=== PATIENT | female | born 1975 | race Caucasian/White ===

== ENCOUNTER → 2017-05-12 | Outpatient (CLI) | payer BC ==
[~2017-05-12] MED LIST: MULT-506 PO
[2017-05-12 11:19] LABS: BASO % 0.3 %; BASO ABS # 0.02 K/uL (0-0.2); COMPLETE YES; EOS % 2.4 %; HEMATOCRIT 38.5 % (37-47); IG% 0.1 %; LYMPH ABS # 2.17 K/uL (1.2-3.4); MEAN CELL VOLUME 89.7 fL (80-100); MEAN CORPUSCULAR HEMOGLOBIN 30.1 pg (25-34); MEAN CORPUSCULAR HGB CONC 33.5 g/dl (32-36); MEAN PLATELET VOLUME 9.5 fL (7.4-10.4); MONO % 6.4 %; NEUT % 59.8 %; PLATELET COUNT 390 K/uL (130-400); RED BLOOD COUNT 4.29 M/uL (4.2-5.4)
[2017-05-12 11:40] LABS: ALT/SGPT 20 U/L (12-78); AST/SGOT 14 U/L (15-37); BLOOD UREA NITROGEN 10 mg/dl (7-18); CALCIUM 8.5 mg/dl (8.5-10.1); CARBON DIOXIDE 24 mmol/L (21-32); CHLORIDE 110 mmol/L (98-107); CREATININE 0.83 mg/dl (0.60-1.20); GLUCOSE 83 mg/dl (70-99); MAGNESIUM 2.3 mg/dl (1.8-2.4); POTASSIUM 3.9 mmol/L (3.5-5.1); SODIUM 142 mmol/L (136-145)
[2017-05-12 11:50] LABS: ALKALINE PHOSPHATASE 58 U/L (45-117)
== END | disposition home or self-care (01) ==
LOC: C.LABBC 08:35
PROVIDERS: ATTEND Nurse Practitioner Family
DX: R63.5 Abnormal weight gain (principal); N94.89 Other specified conditions associated with female genital organs and menstrual cycle; R51 Headache

== ENCOUNTER 2018-02-08 11:59 | Emergency (ER) | payer BC ==
[~2018-02-08] VITALS: Ht 152.4 cm; Wt 90.0 kg
[2018-02-08 12:01] VITALS: Ht 152.4 cm; Wt 90.0 kg
[2018-02-08] MEDS ORDERED: SODIUM CHLORIDE 0.9% 1000ML 1,000 ML IV STA (12:10)
[2018-02-08] MEDS ORDERED: ONDANSETRON INJ 2 MG/ML 2 ML VIAL IV STA (12:10)
[2018-02-08] MEDS ORDERED: KETOROLAC TROMETHAMINE 30 MG/ML VIAL IV STA (12:10)
[2018-02-08 12:26] LABS: BASO % 0.4 %; BASO ABS # 0.04 K/uL (0-0.2); EOS % 1.4 %; EOS ABS # 0.13 K/uL (0-0.5); HEMATOCRIT 38.5 % (37-47); HEMOGLOBIN 13.2 g/dL (12.0-16.0); IG# 0.02 K/uL (0.00-0.02); LYMPH % 23.4 %; LYMPH ABS # 2.21 K/uL (1.2-3.4); MEAN CELL VOLUME 89.1 fL (80-100); MEAN CORPUSCULAR HEMOGLOBIN 30.6 pg (25-34); MEAN CORPUSCULAR HGB CONC 34.3 g/dl (32-36); MEAN PLATELET VOLUME 9.2 fL (7.4-10.4); MONO % 6.8 %; MONO ABS # 0.64 K/uL (0.11-0.59); NEUT % 67.8 %; NEUT ABS # 6.42 K/uL (1.4-6.5); PLATELET COUNT 366 K/uL (130-400); RED CELL DISTRIBUTION WIDTH CV 13.3 % (11.5-14.5); RED CELL DISTRIBUTION WIDTH SD 43.9 fL (36.4-46.3); WHITE BLOOD COUNT 9.46 K/uL (4.8-10.8)
[2018-02-08 12:44] LABS: ALBUMIN 3.4 gm/dl (3.4-5.0); ALT/SGPT 17 U/L (12-78); AST/SGOT 13 U/L (15-37); BLOOD UREA NITROGEN 6 mg/dl (7-18); CALCIUM 8.8 mg/dl (8.5-10.1); CARBON DIOXIDE 22 mmol/L (21-32); GLUCOSE 97 mg/dl (70-99); LIPASE 66 U/L (73-393); POTASSIUM 4.1 mmol/L (3.5-5.1); SODIUM 138 mmol/L (136-145)
[2018-02-08 12:46] LABS: ALKALINE PHOSPHATASE 66 U/L (45-117); TOTAL PROTEIN 7.1 gm/dl (6.4-8.2)
--- NOTE | 2018-02-08 12:54 | DIAGNOSTIC IMAGING REPORT ---
CHEST ONE VIEW PORTABLE CLINICAL HISTORY: 42 years-old Female presenting with ABDOMINAL PAIN/GI. TECHNIQUE: Portable upright AP view of the chest was obtained. COMPARISON: 05/06/2016. FINDINGS: Cardiomediastinal silhouette normal. Lungs and pleural spaces clear. Osseous structures normal. Upper abdomen normal. IMPRESSION: 1. No acute cardiopulmonary disease. Electronically signed by: Braden Doherty M.D. 02/08/2018 12:53 PM Dictated Date/Time: 02/08/2018 12:52 PM
--- NOTE | 2018-02-08 13:19 | DIAGNOSTIC IMAGING REPORT ---
ABD/PELVIS WITHOUT FOR STONE CLINICAL HISTORY: 42 years-old Female presenting with sharp rt sided abd pain, sudden onset this morning. TECHNIQUE: Multidetector CT of the abdomen and pelvis was performed without the use of intravenous contrast. IV contrast: None. A dose lowering technique was used consistent with the principles of ALARA (as low as reasonably achievable). COMPARISON: None. CT DOSE (mGy.cm): The estimated cumulative dose is 1691.33 mGy.cm. FINDINGS: Lotus Notes Administrator topogram: Unremarkable. Lung bases: Minimal basilar opacities, likely atelectasis. Normal heart size. No pericardial or pleural effusion. Liver: Normal morphology. Normal density. Biliary: No gross biliary ductal dilatation allowing for noncontrast technique. Normal gallbladder. Pancreas: Mild parenchymal atrophy. Spleen: Normal noncontrast appearance. Adrenal glands: Normal noncontrast appearance. Kidneys and ureters: Normal noncontrast appearance. No nephrolithiasis. No hydronephrosis. Normal ureters. Bladder: Incompletely evaluated secondary to underdistention. Pelvic organs: Normal noncontrast appearance. Bowel: Nonspecific intramural fat to position in the colon, which can be seen in the setting of chronic inflammation, chronic steroids, or obesity. The appendix is mildly thick-walled (series 3 image 265). The appendiceal diameter measures 8 mm. Trace periappendiceal fat stranding may be present, however, this is equivocal. The terminal ileum is normal appearing. Peritoneal cavity: No free fluid or intraperitoneal gas. Lymph nodes: No gross lymphadenopathy allowing for noncontrast technique. Vasculature: Normal noncontrast appearance. Abdominal wall: Nonspecific edema in the lumbar subcutaneous tissue. Musculoskeletal: Normal. IMPRESSION: 1. Findings equivocal for mild early acute appendicitis as the appendix is mildly thick-walled, questionably dilated, with trace periappendiceal fat infiltration. Close clinical follow-up recommended with consideration for repeat CT as clinically indicated. The appendix would likely not be visible by ultrasound. 2. No nephrolithiasis. No other acute pathology. Electronically signed by: Braden Doherty M.D. 02/08/2018 1:18 PM Dictated Date/Time: 02/08/2018 1:12 PM
--- NOTE | 2018-02-08 14:09 | EMERGENCY ROOM VISIT NOTE ---
History Report prepared by Choco: Teddy Justice Under the Supervision of: Dr. Jero Oliver D.O. First contact with patient: 12:04 Chief Complaint: ABDOMINAL PAIN Stated Complaint: PAIN IN R LOWER ABD/CHEST Nursing Triage Summary: Woke up with sharp pain in right lower abdomen radiating to upper abdomen. Denies N/V/D. Denies constipation. Denies urinary sx. History of Present Illness The patient is a 42 year old female who presents to the Emergency Room with complaints of constant, severe, right-sided abdominal pain beginning this morning. The patient states she woke up this morning with her discomfort. She reports she thought it was a virus so she ate something. The patient notes her symptoms intensified after she ate something and moved up her side. She reports any type of movement worsens her symptoms as well. She states she developed diarrhea and nausea. The patient reports a history of a . Her LNMP was two weeks ago. The patient denies vomiting, a history of these symptoms, and the removal of any abdominal organs. Source of History: patient Onset: this morning Position: abdomen (right-sided) Symptom Intensity: severe Timing: constant Modifying Factors (Worsening): eating, movement Associated Symptoms: + nausea, + diarrhea, No vomiting Review of Systems See HPI for pertinent positives & negatives. A total of 10 systems reviewed and were otherwise negative. Past Medical & Surgical Medical Problems: (1) Encounter for removal of sutures (2) Laceration (3) No Known Active Medical Problems Family History Cancer Hypertension Lung disease Seizures Social History Smoking Status: Former Smoker Alcohol Use: occasionally Drug Use: none Marital Status: Housing Status: lives with family Occupation Status: employed Current/Historical Medications Scheduled Naltrexone HCl-Bupropion HCl (Contrave 8-90 mg), 1 TAB PO DAILY Allergies Coded Allergies: Sulfa Drugs (Verified Allergy, Unknown, UNSURE OF RX, 08/26/16) Shellfish (Verified Adverse Reaction, Mild, SCALLOPS=NAUSEA, 08/26/16) Physical Exam Vital Signs Date Time Temp Pulse Resp B/P (MAP) Pulse Ox O2 Delivery O2 Flow Rate FiO2 02/08/18 12:01 36.5 109 18 127/87 99 Room Air Physical Exam CONSTITUTIONAL/VITAL SIGNS: Reviewed / noted above. GENERAL: Non-toxic in appearance. INTEGUMENTARY: Warm, dry, and [place]. HEAD: Normocephalic. EYES: without scleral icterus or trauma. ENT/OROPHARYNX: clear and moist. LYMPHADENOPATHY/NECK: Is supple without lymphadenopathy or meningismus. RESPIRATORY: Lungs clear and equal. CARDIOVASCULAR: Regular rate and rhythm. GI/ABDOMEN: Soft and tender to the RLQ and epigastric region. No organomegaly or pulsatile mass. No rebound or guarding. Normal bowel sounds. EXTREMITIES: Warm and well perfused. BACK: Left CVA tenderness. NEUROLOGICAL: Intact without focal deficits. PSYCHIATRIC: normal affect. MUSCULOSKELETAL: Normally developed with good muscle tone. Medical Decision & Procedures ER Provider Diagnostic Interpretation: Radiology results as stated below per my review and radiologist interpretation: CHEST ONE VIEW PORTABLE CLINICAL HISTORY: 42 years-old Female presenting with ABDOMINAL PAIN/GI. TECHNIQUE: Portable upright AP view of the chest was obtained. COMPARISON: 05/06/2016. FINDINGS: Cardiomediastinal silhouette normal. Lungs and pleural spaces clear. Osseous structures normal. Upper abdomen normal. IMPRESSION: 1. No acute cardiopulmonary disease. Electronically signed by: Braden Doherty M.D. 02/08/2018 12:53 PM Dictated Date/Time: 02/08/2018 12:52 PM ABD/PELVIS WITHOUT FOR STONE CLINICAL HISTORY: 42 years-old Female presenting with sharp rt sided abd pain, sudden onset this morning. TECHNIQUE: Multidetector CT of the abdomen and pelvis was performed without the use of intravenous contrast. IV contrast: None. A dose lowering technique was used consistent with the principles of ALARA (as low as reasonably achievable). COMPARISON: None. CT DOSE (mGy.cm): The estimated cumulative dose is 1691.33 mGy.cm. FINDINGS: Casing Trimmer topogram: Unremarkable. Lung bases: Minimal basilar opacities, likely atelectasis. Normal heart size. No pericardial or pleural effusion. Liver: Normal morphology. Normal density. Biliary: No gross biliary ductal dilatation allowing for noncontrast technique. Normal gallbladder. Pancreas: Mild parenchymal atrophy. Spleen: Normal noncontrast appearance. Adrenal glands: Normal noncontrast appearance. Kidneys and ureters: Normal noncontrast appearance. No nephrolithiasis. No hydronephrosis. Normal ureters. Bladder: Incompletely evaluated secondary to underdistention. Pelvic organs: Normal noncontrast appearance. Bowel: Nonspecific intramural fat to position in the colon, which can be seen in the setting of chronic inflammation, chronic steroids, or obesity. The appendix is mildly thick-walled (series 3 image 265). The appendiceal diameter measures 8 mm. Trace periappendiceal fat stranding may be present, however, this is equivocal. The terminal ileum is normal appearing. Peritoneal cavity: No free fluid or intraperitoneal gas. Lymph nodes: No gross lymphadenopathy allowing for noncontrast technique. Vasculature: Normal noncontrast appearance. Abdominal wall: Nonspecific edema in the lumbar subcutaneous tissue. Musculoskeletal: Normal. IMPRESSION: 1. Findings equivocal for mild early acute appendicitis as the appendix is mildly thick-walled, questionably dilated, with trace periappendiceal fat infiltration. Close clinical follow-up recommended with consideration for repeat CT as clinically indicated. The appendix would likely not be visible by ultrasound. 2. No nephrolithiasis. No other acute pathology. Electronically signed by: Braden Doherty M.D. 02/08/2018 1:18 PM Dictated Date/Time: 02/08/2018 1:12 PM Laboratory Results 02/08/18 12:15 Red Blood Count 4.32, Mean Corpuscular Volume 89.1, Mean Corpuscular Hemoglobin 30.6, Mean Corpuscular Hemoglobin Concent 34.3, Mean Platelet Volume 9.2, Neutrophils (%) (Auto) 67.8, Lymphocytes (%) (Auto) 23.4, Monocytes (%) (Auto) 6.8, Eosinophils (%) (Auto) 1.4, Basophils (%) (Auto) 0.4, Neutrophils # (Auto) 6.42, Lymphocytes # (Auto) 2.21, Monocytes # (Auto) 0.64, Eosinophils # (Auto) 0.13, Basophils # (Auto) 0.04 02/08/18 12:15 Test 02/08/18 12:15 02/08/18 13:00 White Blood Count 9.46 K/uL (4.8-10.8) Red Blood Count 4.32 M/uL (4.2-5.4) Hemoglobin 13.2 g/dL (12.0-16.0) Hematocrit 38.5 % (37-47) Mean Corpuscular Volume 89.1 fL (80-100) Mean Corpuscular Hemoglobin 30.6 pg (25-34) Mean Corpuscular Hemoglobin Concent 34.3 g/dl (32-36) Platelet Count 366 K/uL (130-400) Mean Platelet Volume 9.2 fL (7.4-10.4) Neutrophils (%) (Auto) 67.8 % Lymphocytes (%) (Auto) 23.4 % Monocytes (%) (Auto) 6.8 % Eosinophils (%) (Auto) 1.4 % Basophils (%) (Auto) 0.4 % Neutrophils # (Auto) 6.42 K/uL (1.4-6.5) Lymphocytes # (Auto) 2.21 K/uL (1.2-3.4) Monocytes # (Auto) 0.64 K/uL (0.11-0.59) Eosinophils # (Auto) 0.13 K/uL (0-0.5) Basophils # (Auto) 0.04 K/uL (0-0.2) RDW Standard Deviation 43.9 fL (36.4-46.3) RDW Coefficient of Variation 13.3 % (11.5-14.5) Immature Granulocyte % (Auto) 0.2 % Immature Granulocyte # (Auto) 0.02 K/uL (0.00-0.02) Anion Gap 8.0 mmol/L (3-11) Est Creatinine Clear Calc Drug Dose 80.5 ml/min Estimated GFR () 90.8 Estimated GFR (Non- 78.3 BUN/Creatinine Ratio 6.2 (10-20) Calcium Level 8.8 mg/dl (8.5-10.1) Total Bilirubin 0.3 mg/dl (0.2-1) Direct Bilirubin < 0.1 mg/dl (0-0.2) Aspartate Amino Transf (AST/SGOT) 13 U/L (15-37) Alanine Aminotransferase (ALT/SGPT) 17 U/L (12-78) Alkaline Phosphatase 66 U/L (45-117) Total Protein 7.1 gm/dl (6.4-8.2) Albumin 3.4 gm/dl (3.4-5.0) Lipase 66 U/L (73-393) Urine Color YELLOW Urine Appearance CLEAR (CLEAR) Urine pH 5.5 (4.5-7.5) Urine Specific [place] 1.007 (1.000-1.030) Urine Protein NEG (NEG) Urine Glucose (UA) NEG (NEG) Urine Ketones NEG (NEG) Urine Occult Blood NEG (NEG) Urine Nitrite NEG (NEG) Urine Bilirubin NEG (NEG) Urine Urobilinogen NEG (NEG) Urine Leukocyte Esterase NEG (NEG) Urine WBC (Auto) 0 /hpf (0-5) Urine RBC (Auto) 0-4 /hpf (0-4) Urine Hyaline Casts (Auto) 0 /lpf (0-5) Urine Epithelial Cells (Auto) 20-30 /lpf (0-5) Urine Bacteria (Auto) NEG (NEG) Urine Test NEG (NEG) Laboratory results as stated above per my review. Medications Administered Medications (Trade) Dose Ordered Sig/Saul Route Start Time Stop Time Status Last Admin Dose Admin Sodium Chloride 1,000 ml @ 999 mls/hr Q1H1M STAT IV 02/08/18 12:10 02/08/18 13:10 DC 02/08/18 12:54 999 MLS/HR Ondansetron HCl (Zofran Inj) 4 mg NOW STAT IV 02/08/18 12:10 02/08/18 12:12 DC 02/08/18 12:55 4 MG Ketorolac Tromethamine (Toradol Inj) 30 mg NOW STAT IV 02/08/18 12:10 02/08/18 12:12 DC 02/08/18 12:55 30 MG ED Course 1205: Previous medical records were reviewed. The patient was evaluated in room B04B. A complete history and physical examination was performed. 1210: Ordered Ketorolac Tromethamine 30mg IV, Ondansetron HCl 4mg IV, Sodium Chloride 1000 ml @ 999 mls/hr IV 1335: I discussed the patient's case with Dr. Farooq, General Surgery. He believes the patient appears stable enough to be discharged. He recommends the patient return in 12-18 hours if the symptoms persist for a repeat CT scan. 1342: On reevaluation, the patient is resting. I discussed the results, consult , and findings with the patient. She verbalized agreement of the treatment plan. The patient was discharged home. Medical Decision Differential considered: pancreatitis, hepatitis, or acute cholecystitis, AAA, UTI, pyelonephritis, kidney stones, appendicitis, diverticulitis, shingles, bowel obstruction mesenteric ischemia, intussusception,hernia, ovarian torsion, ruptured ovarian cyst,ectopic , . This is a 42-year-old female who presents to the ED with a chief complaint of abdominal pain. The patient states that her symptoms started about 5 or 6:00 this morning. She reported a decreased appetite but no nausea or vomiting. She states that she had a little diarrhea. Her pain was described as a shooting pain from the right lower quadrant and radiated into the right upper quadrant and epigastric area. Her last mental period of 1-2 weeks ago. Her exam reveals tenderness in the right lower quadrant as well as some tenderness in the epigastric area. She also has some left-sided CVA tenderness. Her vital signs are stable she is afebrile. The patient was treated with IV Toradol and IV Zofran as well as some IV fluids. Her CT scan reveals equivocal findings for an early appendicitis. A clinical follow-up and repeat CT scan was recommended. I did speak with Dr. Farooq about the patient. The patient' s blood work reveals a normal white blood cell count and chemistry panel. She is not . He recommends that the patient follow-up in 12-18 hours for repeat evaluation/CT scan unless her symptoms completely resolved. She was advised of this. She was felt to be stable for discharge. She did state that her symptoms improved after Toradol and Zofran. Repeat abdominal exam continues to reveal some mild right lower quadrant tenderness as well as epigastric tenderness prior to disposition and discharge. Medication Reconcilliation Current Medication List: was personally reviewed by me Blood Pressure Screening Patient's blood pressure: Normal blood pressure Blood pressure disposition: Did not require urgent referral Consults Time Called: 1328 Consulting Physician: Dr. Farooq, General Surgery Returned Call: [phone] I discussed the patient's case with Dr. Farooq, General Surgery. He believes the patient appears stable enough to be discharged. He recommends the patient return in 12-18 hours if the symptoms persist for a repeat CT scan. Impression Primary Impression: RLQ abdominal pain Scribe Attestation The scribe's documentation has been prepared under my direction and personally reviewed by me in its entirety. I confirm that the note above accurately reflects all work, treatment, procedures, and medical decision making performed by me. Departure Information Dispostion Home / Self-Care Referrals Lety Dela Cruz DO (PCP) Forms Call Back Authorization, HOME CARE DOCUMENTATION FORM, IMPORTANT VISIT INFORMATION Patient Instructions [facility] Additional Instructions Your CT scan today shows findings that may be related to an early appendicitis. Repeat evaluation and CT scan is recommended in 12-18 hours if your symptoms persist or worsen. Return to the emergency department in 12-18 hours if symptoms persist or worsen. If symptoms completely resolve and you are symptom-free by tomorrow morning, you do not have to return for evaluation. Liquid diet for the next 12-18 hours. Tylenol may be used as needed for pain. Work Instructions Return To Work: 1 day
[2018-02-08 14:42] VITALS: BP 127/87; PULSE 109; TEMP 36.5; O2SAT 99
[2018-02-09] MEDS ORDERED: FAMO20TA11 PO (07:26)
[2018-02-09] MEDS ORDERED: NALT1TAB14 PO (12:12)
[2018-02-10] MEDS ORDERED: OXYC7.5T65 PO (11:38)
== END 2018-02-08 14:43 | disposition home or self-care (01) ==
LOC: C.EDB 12:00
DX: R10.31 Right lower quadrant pain (principal); R19.7 Diarrhea, unspecified; R11.0 Nausea; Z79.899 Other long term (current) drug therapy; Z88.2 Allergy status to sulfonamides; Z91.013 Allergy to seafood; Z87.891 Personal history of nicotine dependence; Z82.0 Family history of epilepsy and other diseases of the nervous system; Z82.49 Family history of ischemic heart disease and other diseases of the circulatory system; Z83.6 Family history of other diseases of the respiratory system

== ENCOUNTER 2018-02-09 07:01 | Emergency (ER) | payer BC ==
[~2018-02-09] VITALS: Ht 162.6 cm; Wt 90.7 kg
[2018-02-09] VITALS (7 sets, daily range): BP systolic 103–126; BP diastolic 68–88; PULSE 53–65; TEMP 36.5–36.8; O2SAT 97–100; Ht 162.6 cm; Wt 90.7 kg
[2018-02-09] MEDS ORDERED: SODIUM CHLORIDE 0.9% 1000ML 1,000 ML IV STA (07:03)
[2018-02-09] MEDS ORDERED: FAMO20TA11 PO (07:26)
[2018-02-09] MEDS ORDERED: ONDANSETRON INJ 2 MG/ML 2 ML VIAL IV STA (07:45)
[2018-02-09] MEDS ORDERED: KETOROLAC TROMETHAMINE 30 MG/ML VIAL IV STA (07:45)
[2018-02-09 07:51] LABS: BASO % 0.3 %; BASO ABS # 0.03 K/uL (0-0.2); EOS % 1.4 %; EOS ABS # 0.13 K/uL (0-0.5); HEMATOCRIT 37.8 % (37-47); HEMOGLOBIN 12.8 g/dL (12.0-16.0); IG# 0.01 K/uL (0.00-0.02); LYMPH % 16.9 %; LYMPH ABS # 1.61 K/uL (1.2-3.4); MEAN CORPUSCULAR HEMOGLOBIN 30.5 pg (25-34); MEAN CORPUSCULAR HGB CONC 33.9 g/dl (32-36); MEAN PLATELET VOLUME 9.2 fL (7.4-10.4); MONO % 6.8 %; MONO ABS # 0.65 K/uL (0.11-0.59); NEUT % 74.5 %; NEUT ABS # 7.08 K/uL (1.4-6.5); PLATELET COUNT 339 K/uL (130-400); RED CELL DISTRIBUTION WIDTH CV 13.5 % (11.5-14.5); RED CELL DISTRIBUTION WIDTH SD 44.5 fL (36.4-46.3); WHITE BLOOD COUNT 9.51 K/uL (4.8-10.8)
[2018-02-09] MEDS ORDERED: OPTIRAY 320 IV PRN (08:00)
[2018-02-09 08:08] LABS: ALBUMIN 3.1 gm/dl (3.4-5.0); ALT/SGPT 16 U/L (12-78); BLOOD UREA NITROGEN 6 mg/dl (7-18); CALCIUM 8.3 mg/dl (8.5-10.1); CARBON DIOXIDE 24 mmol/L (21-32); CREATININE 0.88 mg/dl (0.60-1.20); GLUCOSE 88 mg/dl (70-99); LIPASE 66 U/L (73-393); POTASSIUM 3.8 mmol/L (3.5-5.1); SODIUM 140 mmol/L (136-145)
--- NOTE | 2018-02-09 08:08 | DIAGNOSTIC IMAGING REPORT ---
CT OF THE ABDOMEN AND PELVIS WITH CONTRAST CLINICAL HISTORY: Right lower quadrant abdominal pain and nausea. COMPARISON STUDY: CT of the abdomen and pelvis February 08, 2018. TECHNIQUE: Following IV administration of 115 mL of [id number]-[id number], axial images of the abdomen and pelvis were obtained from the lung bases to the proximal femurs. Images were reviewed in the axial, sagittal, and coronal planes. IV contrast was administered without complication. A dose lowering technique was utilized adhering to the principles of ALARA. CT DOSE: 672.43 mGy.cm FINDINGS: The liver, spleen, adrenal glands, kidneys and pancreas are normal. There is no biliary or pancreatic ductal dilatation. There is no hydronephrosis. There is no evidence for a bowel obstruction. Mild appendiceal dilatation has increased since CT of February 08, 2018. The appendix measures 1 cm in caliber. Mild periappendiceal infiltration has slightly increased. There is no free air or abscess. The ovaries are not enlarged. There is a dominant left ovarian follicle. No pneumatosis, free air or portal venous gas is present. There are no suspicious osseous lesions. There is no lymphadenopathy. IMPRESSION: Findings consistent with acute appendicitis. Mild progression since CT of February 08, 2018. No free air or abscess. Electronically signed by: Abdoulaye Caldwell M.D. 02/09/2018 8:06 AM Dictated Date/Time: 02/09/2018 8:00 AM
[2018-02-09 08:11] LABS: ALKALINE PHOSPHATASE 66 U/L (45-117); AST/SGOT 11 U/L (15-37); TOTAL PROTEIN 6.5 gm/dl (6.4-8.2)
--- NOTE | 2018-02-09 08:30 | EMERGENCY ROOM VISIT NOTE ---
History Report prepared by Scribe: Dennis Arenas Under the Supervision of: Dr. Jero Oliver D.O. First contact with patient: 07:03 Chief Complaint: ABDOMINAL PAIN Stated Complaint: APPENDICITIS-NOT BETTER FROM 3 Nursing Triage Summary: Pt presents with RLQ pain and nausea that started yesterday morning. Pt states seen here yesterday and dx with early appendicitis. States was told she could wait and watch it. Pain still about the same in intensity, "but different". History of Present Illness The patient is a 42 year old female who presents to the Emergency Room with complaints of constant RLQ abdominal pain beginning yesterday. She also complains of nausea. The patient's pain worsens with movement, or breathing. She rates her pain as a 6/10 in severity. The patient was seen in the ED yesterday for similar symptoms and was found to have "questionable early appendicitis" by abdominal CT. She was discharged and advised to return for a repeat scan if symptoms continue or worsen. She notes that she was able to sleep last night, but her pain did not improve. Source of History: patient Onset: Yesterday Position: abdomen (RLQ) Symptom Intensity: 6/10 Timing: constant Modifying Factors (Worsening): breathing, movement Associated Symptoms: + nausea Review of Systems See HPI for pertinent positives & negatives. A total of 10 systems reviewed and were otherwise negative. Past Medical & Surgical Medical Problems: (1) Encounter for removal of sutures (2) Laceration (3) No Known Active Medical Problems Family History Cancer Hypertension Lung disease Seizures Social History Smoking Status: Former Smoker Alcohol Use: occasionally Drug Use: none Marital Status: Housing Status: lives with family Occupation Status: employed Current/Historical Medications Scheduled Famotidine (Pepcid), 20 MG PO UD Naltrexone HCl-Bupropion HCl (Contrave 8-90 mg), 4 TAB PO DAILY Allergies Coded Allergies: Sulfa Drugs (Verified Allergy, Unknown, UNSURE OF RX, 02/09/18) Shellfish (Verified Adverse Reaction, Mild, SCALLOPS=NAUSEA, 02/09/18) Physical Exam Vital Signs Date Time Temp Pulse Resp B/P (MAP) Pulse Ox O2 Delivery O2 Flow Rate FiO2 02/09/18 07:04 36.4 95 18 110/79 95 Room Air Physical Exam CONSTITUTIONAL/VITAL SIGNS: Reviewed / noted above. GENERAL: Non-toxic in appearance. INTEGUMENTARY: Warm, dry, and [place]. HEAD: Normocephalic. EYES: without scleral icterus or trauma. ENT/OROPHARYNX: clear and moist. LYMPHADENOPATHY/NECK: Is supple without lymphadenopathy or meningismus. RESPIRATORY: Lungs clear and equal. CARDIOVASCULAR: Regular rate and rhythm. GI/ABDOMEN: Soft. No organomegaly or pulsatile mass. No rebound or guarding. Normal bowel sounds. Tenderness to the LUQ, RUQ and RLQ. EXTREMITIES: Warm and well perfused. BACK: No CVA tenderness. NEUROLOGICAL: Intact without focal deficits. PSYCHIATRIC: normal affect. MUSCULOSKELETAL: Normally developed with good muscle tone. Medical Decision & Procedures ER Provider Diagnostic Interpretation: Radiology results as stated below per my review and radiologist interpretation: CT OF THE ABDOMEN AND PELVIS WITH CONTRAST FINDINGS: The liver, spleen, adrenal glands, kidneys and pancreas are normal. There is no biliary or pancreatic ductal dilatation. There is no hydronephrosis. There is no evidence for a bowel obstruction. Mild appendiceal dilatation has increased since CT of February 08, 2018. The appendix measures 1 cm in caliber. Mild periappendiceal infiltration has slightly increased. There is no free air or abscess. The ovaries are not enlarged. There is a dominant left ovarian follicle. No pneumatosis, free air or portal venous gas is present. There are no suspicious osseous lesions. There is no lymphadenopathy. IMPRESSION: Findings consistent with acute appendicitis. Mild progression since CT of February 08, 2018. No free air or abscess. Electronically signed by: Abdoulaye Caldwell M.D. 02/09/2018 8:06 AM Laboratory Results 02/09/18 07:35 Red Blood Count 4.20, Mean Corpuscular Volume 90.0, Mean Corpuscular Hemoglobin 30.5, Mean Corpuscular Hemoglobin Concent 33.9, Mean Platelet Volume 9.2, Neutrophils (%) (Auto) 74.5, Lymphocytes (%) (Auto) 16.9, Monocytes (%) (Auto) 6.8, Eosinophils (%) (Auto) 1.4, Basophils (%) (Auto) 0.3, Neutrophils # (Auto) 7.08, Lymphocytes # (Auto) 1.61, Monocytes # (Auto) 0.65, Eosinophils # (Auto) 0.13, Basophils # (Auto) 0.03 02/09/18 07:35 Test 02/09/18 07:35 White Blood Count 9.51 K/uL (4.8-10.8) Red Blood Count 4.20 M/uL (4.2-5.4) Hemoglobin 12.8 g/dL (12.0-16.0) Hematocrit 37.8 % (37-47) Mean Corpuscular Volume 90.0 fL (80-100) Mean Corpuscular Hemoglobin 30.5 pg (25-34) Mean Corpuscular Hemoglobin Concent 33.9 g/dl (32-36) Platelet Count 339 K/uL (130-400) Mean Platelet Volume 9.2 fL (7.4-10.4) Neutrophils (%) (Auto) 74.5 % Lymphocytes (%) (Auto) 16.9 % Monocytes (%) (Auto) 6.8 % Eosinophils (%) (Auto) 1.4 % Basophils (%) (Auto) 0.3 % Neutrophils # (Auto) 7.08 K/uL (1.4-6.5) Lymphocytes # (Auto) 1.61 K/uL (1.2-3.4) Monocytes # (Auto) 0.65 K/uL (0.11-0.59) Eosinophils # (Auto) 0.13 K/uL (0-0.5) Basophils # (Auto) 0.03 K/uL (0-0.2) RDW Standard Deviation 44.5 fL (36.4-46.3) RDW Coefficient of Variation 13.5 % (11.5-14.5) Immature Granulocyte % (Auto) 0.1 % Immature Granulocyte # (Auto) 0.01 K/uL (0.00-0.02) Anion Gap 7.0 mmol/L (3-11) Est Creatinine Clear Calc Drug Dose 89.9 ml/min Estimated GFR () 93.3 Estimated GFR (Non- 80.5 BUN/Creatinine Ratio 7.1 (10-20) Calcium Level 8.3 mg/dl (8.5-10.1) Total Bilirubin 0.4 mg/dl (0.2-1) Direct Bilirubin < 0.1 mg/dl (0-0.2) Aspartate Amino Transf (AST/SGOT) 11 U/L (15-37) Alanine Aminotransferase (ALT/SGPT) 16 U/L (12-78) Alkaline Phosphatase 66 U/L (45-117) Total Protein 6.5 gm/dl (6.4-8.2) Albumin 3.1 gm/dl (3.4-5.0) Lipase 66 U/L (73-393) Laboratory results as stated above per my review. Medications Administered Medications (Trade) Dose Ordered Sig/Saul Route Start Time Stop Time Status Last Admin Dose Admin Sodium Chloride 1,000 ml @ 999 mls/hr Q1H1M STAT IV 02/09/18 07:03 02/09/18 08:03 DC 02/09/18 08:05 999 MLS/HR Ondansetron HCl (Zofran Inj) 4 mg NOW STAT IV 02/09/18 07:45 02/09/18 07:46 DC 02/09/18 08:12 4 MG Ketorolac Tromethamine (Toradol Inj) 30 mg NOW STAT IV 02/09/18 07:45 02/09/18 07:46 DC 02/09/18 08:12 30 MG ED Course 0711: Previous medical records were reviewed. The patient was evaluated in room A2. A complete history and physical examination was performed. Ordered Sodium Chloride 1000 ml @ 999 mls/hr IV. 0745: Ordered Toradol Inj 30 mg IV, Zofran inj 4 mg IV. 0826: On reevaluation, the patient is resting comfortably. I discussed the results and findings with her. She verbalized agreement of the treatment plan. I spoke with Irais Rhodes of General Surgery. The patient will be evaluated for further management and care. Medical Decision Differential considered: pancreatitis, hepatitis, or acute cholecystitis, AAA, UTI, pyelonephritis, kidney stones, appendicitis, diverticulitis, shingles, bowel obstruction mesenteric ischemia, intussusception, hernia, ovarian torsion , ruptured ovarian cyst,ectopic , . This is a 42-year-old female who presents to the ED with a chief complaint of right lower quadrant abdominal pain. The patient was seen yesterday and had equivocal findings for early appendicitis. The patient returns today for her repeat CT scan. Today's repeat CT of the abdomen and pelvis reveals mild progression of the findings correlating to acute appendicitis. The patient's blood work is unremarkable. The patient was treated with IV fluids, IV Toradol and IV Zofran. She was seen by the surgical service and will be evaluated for appendectomy by the surgery service. Medication Reconcilliation Current Medication List: was personally reviewed by me Blood Pressure Screening Patient's blood pressure: Normal blood pressure Blood pressure disposition: Did not require urgent referral Consults Time Called: 813 Consulting Physician: Irais Rhodes PA-C - General Surgery Returned Call: [phone] Discussed the patient's case. The patient will be evaluated for further treatment and disposition. Impression Primary Impression: Appendicitis Scribe Attestation The scribe's documentation has been prepared under my direction and personally reviewed by me in its entirety. I confirm that the note above accurately reflects all work, treatment, procedures, and medical decision making performed by me. Departure Information Dispostion Being Evaluated By Surgeon Referrals Philip Pimentel III, CRNP (PCP) Patient Instructions My [facility]
[2018-02-09] MEDS ORDERED: MoRPHine SULFATE 2 MG/ML CARP IV PRN ×3 (08:45)
[2018-02-09] MEDS ORDERED: ONDANSETRON INJ 2 MG/ML 2 ML VIAL IV PRN ×4 (08:45→12:00)
--- NOTE | 2018-02-09 08:58 | History and Physical ---
History & Physical Date & Time of Service: Feb 09, 2018 at 08:50 Chief Complaint: Appendicitis-Not Better From 3 Primary Care Physician: Philip Pimentel III, CRNP History of Present Illness Source: patient Anahi is a pleasant 42-year-old female presents to the emergency room originally yesterday with complaint of right lower quadrant abdominal pain that started yesterday morning. States she was in her normal state of health prior. States nothing seemed to make the pain better. Associated chills but no fever. No nausea or vomiting. She had a CT scan last night in the emergency room which showed equivocal findings of appendicitis with dilated appendix 8 mm. She was sent home with pain medication. States the pain slightly improved but continued throughout the evening when she woke this morning pain was severe 10 out of [address] scan of the abdomen and pelvis with IV contrast showed dilated appendix at 1 cm with associated periappendiceal inflammation consistent with acute appendicitis. Labs show no leukocytosis. Previous surgeries include D&C and August and 2 prior sections. Past Medical/Surgical History Medical Problems: (1) Acute appendicitis (2) Closed head injury (3) Encounter for removal of sutures (4) Laceration (5) Nasal injury (6) Nausea, vomiting, and diarrhea (7) No Known Active Medical Problems (8) RLQ abdominal pain (9) URI (upper respiratory infection) (10) Work related injury Past Surgical History: 1. Adenoidectomy 2. D&C 3. section 2 Family History Cancer Hypertension Lung disease Seizures Social History Smoking Status: Former Smoker Drug Use: none Marital Status: Occupational Status: employed Immunizations History of Influenza Vaccine: Unknown History of Tetanus Vaccine?: Unknown History of Pneumococcal: Unknown History of Hepatitis B Vaccine: Unknown Allergies Coded Allergies: Sulfa Antibiotics (Verified Allergy, Unknown, UNSURE OF RXN, 02/09/18) Shellfish (Verified Adverse Reaction, Mild, SCALLOPS=NAUSEA, 02/09/18) Home Medications Scheduled Famotidine (Pepcid), 20 MG PO UD Naltrexone HCl-Bupropion HCl (Contrave 8-90 mg), 4 TAB PO DAILY Review of Systems Constitutional: + chills, No fever, No sweats Respiratory: No cough, No shortness of breath Cardiovascular: No chest pain Abdomen: + pain, No nausea, No vomiting, No diarrhea, No constipation, No GI bleeding Musculoskeletal: No joint pain Genitourinary - Female: No dysuria Hematologic / Lymphatic: No abnormal bleeding/bruising Integumentary: No rash Physical Exam Vital Signs Date Time Temp Pulse Resp B/P (MAP) Pulse Ox O2 Delivery O2 Flow Rate FiO2 02/09/18 07:04 36.4 95 18 110/79 95 Room Air General Appearance: WD/WN, no apparent distress Head: normocephalic, atraumatic Eyes: sclerae normal ENT: hearing grossly normal Neck: trachea midline Respiratory/Chest: lungs clear, normal breath sounds, no respiratory distress, no accessory muscle use Cardiovascular: regular rate, rhythm, no murmur Abdomen/GI: soft, no organomegaly, no pulsatile mass, + tenderness (RLQ), + guarding (RLQ, positive McBurney's point) Back: normal inspection Extremities/Musculoskelatal: no pedal edema Neurologic/Psych: alert, oriented x 3 Skin: normal color, warm/dry, no rash Diagnostics Laboratory Results Results Past 24 Hours Test 02/09/18 07:35 Range/Units White Blood Count 9.51 4.8-10.8 K/uL Red Blood Count 4.20 4.2-5.4 M/uL Hemoglobin 12.8 12.0-16.0 g/dL Hematocrit 37.8 37-47 % Mean Corpuscular Volume 90.0 80-100 fL Mean Corpuscular Hemoglobin 30.5 25-34 pg Mean Corpuscular Hemoglobin Concent 33.9 32-36 g/dl Platelet Count 339 130-400 K/uL Mean Platelet Volume 9.2 7.4-10.4 fL Neutrophils (%) (Auto) 74.5 % Lymphocytes (%) (Auto) 16.9 % Monocytes (%) (Auto) 6.8 % Eosinophils (%) (Auto) 1.4 % Basophils (%) (Auto) 0.3 % Neutrophils # (Auto) 7.08 1.4-6.5 K/uL Lymphocytes # (Auto) 1.61 1.2-3.4 K/uL Monocytes # (Auto) 0.65 0.11-0.59 K/uL Eosinophils # (Auto) 0.13 0-0.5 K/uL Basophils # (Auto) 0.03 0-0.2 K/uL RDW Standard Deviation 44.5 36.4-46.3 fL RDW Coefficient of Variation 13.5 11.5-14.5 % Immature Granulocyte % (Auto) 0.1 % Immature Granulocyte # (Auto) 0.01 0.00-0.02 K/uL Sodium Level 140 136-145 mmol/L Potassium Level 3.8 3.5-5.1 mmol/L Chloride Level 109 98-107 mmol/L Carbon Dioxide Level 24 21-32 mmol/L Anion Gap 7.0 3-11 mmol/L Blood Urea Nitrogen 6 7-18 mg/dl Creatinine 0.88 0.60-1.20 mg/dl Est Creatinine Clear Calc Drug Dose 89.9 ml/min Estimated GFR () 93.3 Estimated GFR (Non- 80.5 BUN/Creatinine Ratio 7.1 10-20 Random Glucose 88 70-99 mg/dl Calcium Level 8.3 8.5-10.1 mg/dl Total Bilirubin 0.4 0.2-1 mg/dl Direct Bilirubin < 0.1 0-0.2 mg/dl Aspartate Amino Transf (AST/SGOT) 11 15-37 U/L Alanine Aminotransferase (ALT/SGPT) 16 12-78 U/L Alkaline Phosphatase 66 45-117 U/L Total Protein 6.5 6.4-8.2 gm/dl Albumin 3.1 3.4-5.0 gm/dl Lipase 66 73-393 U/L Diagnostic Radiology CT OF THE ABDOMEN AND PELVIS WITH CONTRAST CLINICAL HISTORY: Right lower quadrant abdominal pain and nausea. COMPARISON STUDY: CT of the abdomen and pelvis February 08, 2018. TECHNIQUE: Following IV administration of 115 mL of Optiray-320, axial images of the abdomen and pelvis were obtained from the lung bases to the proximal femurs. Images were reviewed in the axial, sagittal, and coronal planes. IV contrast was administered without complication. A dose lowering technique was utilized adhering to the principles of ALARA. CT DOSE: 672.43 mGy.cm FINDINGS: The liver, spleen, adrenal glands, kidneys and pancreas are normal. There is no biliary or pancreatic ductal dilatation. There is no hydronephrosis. There is no evidence for a bowel obstruction. Mild appendiceal dilatation has increased since CT of February 08, 2018. The appendix measures 1 cm in caliber. Mild periappendiceal infiltration has slightly increased. There is no free air or abscess. The ovaries are not enlarged. There is a dominant left ovarian follicle. No pneumatosis, free air or portal venous gas is present. There are no suspicious osseous lesions. There is no lymphadenopathy. IMPRESSION: Findings consistent with acute appendicitis. Mild progression since CT of February 08, 2018. No free air or abscess. Impression Assessment and Plan 42-year-old female who originally presented to the emergency room yesterday with complaint of sudden right lower quadrant abdominal pain. CT scan at that time showed equivocal findings of acute appendicitis dilated appendix 8 mm. She was sent home and returned this morning with increasing right lower quadrant abdominal pain repeat CT scan with IV contrast showed dilated appendix at 1 cm with associated periappendiceal inflammation. No leukocytosis. Abdominal examination shows right lower quadrant tenderness on palpation with positive McBurney's sign. Plan: Plan take patient to the OR for laparoscopic possible open appendectomy. Procedure and risks discussed with patient and informed consent will be obtained by Dr. Coyle. She will be given 2 g of cefoxitin preoperatively IV. Start IV fluids, IV pain medication as needed, IV Zofran as needed. Patient will most likely stay one evening postoperatively depending on operative findings. Dr. Coyle has seen and examined patient, agrees with above. Resuscitation Status VTE Prophylaxis Will order VTE Prophylaxis: Yes Reason for no VTE drug order: Treatment not indicated
[2018-02-09] MEDS ORDERED: LIDOCAINE HCL 2% 2 ML VIAL (20MG/ML) ONE (09:49)
[2018-02-09] MEDS ORDERED: NEOSTIGMINE METHYLSULFATE 5 MG/5 ML SYR ONE (09:49)
[2018-02-09] MEDS ORDERED: FENTANYL CITRATE INJ 50 MCG/1 ML 2 ML VIAL ONE ×4 (09:49→12:09)
[2018-02-09] MEDS ORDERED: DEXAMETHASONE SOD INJ 4 MG/ML VIAL ONE (09:49)
[2018-02-09] MEDS ORDERED: MIDAZOLAM HCL 1 MG/ML 2ML VIAL ONE (09:49)
[2018-02-09] MEDS ORDERED: GLYCOPYRROLATE INJ 0.2 MG/ML VIAL ONE ×2 (09:49→11:40)
[2018-02-09] MEDS ORDERED: PROPOFOL IV EMULSION 10 MG/ML 20 ML VIAL IV ONE (09:49)
[2018-02-09] MEDS ORDERED: ONDANSETRON INJ 2 MG/ML 2 ML VIAL ONE (09:49)
[2018-02-09] MEDS ORDERED: ROCURONIUM BROMIDE 10 MG/ML 5 ML VIAL IV ONE (09:49)
--- NOTE | 2018-02-09 10:16 | History & Physical Bridge Note ---
H&P Re-Evaluation Bridge Note: I have examined the patient, reviewed the History & Physical and in the interval since the performance of the History & Physical I have noted the following changes of clinical significance: No changes noted
[2018-02-09] MEDS ORDERED: BUPIVACAINE 0.5 % 5 MG/1 ML MPF 30ML VIAL ONE (10:25)
[2018-02-09] MEDS ORDERED: BACITRACIN OINT 15 GM TUBE ONE (10:25)
[2018-02-09] MEDS ORDERED: LIDOCAINE HCL 1% 20 ML VIAL ONE (10:25)
[2018-02-09] MEDS ORDERED: CEFOXITIN IV 2,000 MG in DEXTROSE 5% 50ML 50 ML IV ONE (10:30)
[2018-02-09] MEDS ORDERED: HYDROmorphone INJ 1 MG/ML SYR IV PRN ×3 (10:45→12:00)
[2018-02-09] MEDS ORDERED: ATROPINE SULFATE 0.1 MG/ML 5ML SYR IV PRN ×2 (10:45→12:00)
[2018-02-09] MEDS ORDERED: FENTANYL CITRATE INJ 50 MCG/1 ML 2 ML VIAL IV PRN ×2 (10:45→12:00)
[2018-02-09] MEDS ORDERED: EpHEDrine SULFATE INJ 50 MG/ML AMP IV PRN ×2 (10:45→12:00)
[2018-02-09] MEDS ORDERED: SUCCINYLCHOLINE CHLORIDE 20 MG/ML 10 ML VIAL IV ONE (11:13)
--- NOTE | 2018-02-09 11:42 | [facility] Post Operative Brief Note ---
Immediate Operative Summary Operative Date Feb 09, 2018. Pre-Operative Diagnosis Acute Appendicitis Post-Operative Diagnosis Acture Appendicitis Procedure(s) Performed Laparoscopic Appendectomy Surgeon Dr. Coyle Core Worker Surgeon(s) Irais Rhodes PA-C Estimated Blood Loss 10ml Findings Consistent with Post-Op Diagnosis acute appendicitis Specimens A) Appendix Drains None Anesthesia Type General Complication(s) none Disposition Accompanied Pt To Recover: yes Disposition: Recovery Room / PACU
[2018-02-09] MEDS ORDERED: PROMETHAZINE HCL INJ 12.5 MG in SODIUM CHLORIDE 0.9% 50ML 50 ML IV PRN (12:00)
[2018-02-09] MEDS ORDERED: ACETAMINOPHEN 325 MG TAB PO PRN (12:00)
--- NOTE | 2018-02-09 12:05 | OPERATIVE REPORT ---
DATE OF OPERATION: 02/09/2018 PREOPERATIVE DIAGNOSIS: Acute appendicitis. POSTOPERATIVE DIAGNOSIS: Same. PROCEDURE: Laparoscopic appendectomy. SURGEON: Dr. Panfilo Coyle. VEGETABLE FARM MANAGER: Irais Rhodes PA-C. DRAINAGE: None. ANESTHESIA: General. ESTIMATED BLOOD LOSS: About 10 mL. FINDINGS: Acute appendicitis. INDICATIONS FOR THE PROCEDURE: This is a 42-year-old female who presented to the ED with right lower quadrant pain. The patient had a CT scan diagnosed of acute appendicitis. We decided to take the patient to the OR and do the laparoscopy, appendectomy, possible open. I did talk to the patient about the benefit, the risk alternate procedure. I indicated the risks may include but not limited such as bleeding, infection, abscess, injury to the bowel, DVT, even . The patient understands. She signed informed consent and I answered all questions. DETAILS OF PROCEDURE: We brought the patient to the OR, put the patient in the supine position. The patient received SCDs on bilateral legs to prevent DVT. Also, patient received 2 gram cefoxitin IV for prophylactic antibiotic. The patient received general anesthesia without difficulty. The abdomen was prepped and draped in routine sterile fashion. After time out, I injected the local anesthesia just above umbilicus by using 1% lidocaine mixed with 0.5% Marcaine. Then made a small incision just above umbilicus, opened fascia and opened peritoneum under direct vision, put a Pam trocar in, connected to CO2 to create pneumoperitoneum flow rate at 6 liter per minute, pressure not more than 14 mmHg once we got a nice pneumoperitoneum. Then we put the camera in, looked around the abdomen shows no word finding on the stomach, small bowel, large bowel, liver; however, patient had a significant inflammation on the appendix with diagnosis of acute appendicitis. Then, we put another two 5 mm trocar on the left lower quadrant area. Once all trocars in, we used a grasper to hold the appendix and took down the appendiceal by using harmonic, rechecked, no active bleeding. Then I used an Endo-CHRISTIANNE staple to transection the base of the appendix, rechecked, no active bleeding, no leak from bowel. Then we removed the appendix through the catch bag then we reinserted Pam trocar in, connected to CO2 to create pneumoperitoneum. Again, looked around the abdomen, no active bleeding and no leak from bowel. Then we removed all trocar under direct vision. No active bleeding from trocar sites. Then we closed the umbilical incision, fascial layer by using #1 Vicryl [id number] x2, closed subcutaneous layer by using 2-0 Vicryl, closed skin by using 4-0 Vicryl continuous running and closed another two 5 mm trocar site of skin only by using 4-0 Vicryl. We put the dressing on. The patient tolerated the procedure well. All instrument, needle and sponge count are correct x2 at the end of the case and the patient transferred to recovery room in stable condition. The specimen sent to pathology. I attest to the content of the Intraoperative Record and any orders documented therein. Any exceptions are noted below. SINDHUD
[2018-02-09] MEDS ORDERED: NALT1TAB14 PO (12:12)
[2018-02-09] MEDS ORDERED: HYDROmorphone INJ 1 MG/ML SYR ONE (12:28)
--- NOTE | 2018-02-09 12:43 | Anesthesiology Progress Note ---
Anesthesia Post Op Note Date & Time Feb 09, 2018 at 12:43 Vital Signs Pain Intensity: 4 Vital Signs Past 12 Hours Date Time Temp Pulse Resp B/P (MAP) Pulse Ox O2 Delivery O2 Flow Rate FiO2 02/09/18 12:35 65 14 114/79 100 Room Air 02/09/18 12:25 62 15 104/72 100 Nasal Cannula 2 02/09/18 12:15 63 13 112/76 100 Oxymask 10 02/09/18 12:05 69 13 118/74 100 Oxymask 10 02/09/18 11:58 36.1 90 21 123/80 100 Oxymask 10 02/09/18 10:03 77 18 98 02/09/18 09:44 98 Room Air 02/09/18 09:07 62 18 120/70 98 Room Air 02/09/18 07:04 36.4 95 18 110/79 95 Room Air Notes Mental Status: alert / awake / arousable, participated in evaluation Pt Amnestic to Procedure: Yes Nausea / Vomiting: adequately controlled Pain: adequately controlled Airway Patency, RR, SpO2: stable & adequate BP & HR: stable & adequate Hydration State: stable & adequate Anesthetic Complications: no major complications apparent
[2018-02-09] MEDS ORDERED: SODIUM CHLORIDE 0.9% 1000ML 1,000 ML IV SCH (14:00)
[2018-02-09] MEDS: D5W AND 1/2NSS + 20MEQ KCL 1,000 ML IV SCH (14:13)
[2018-02-09] MEDS ORDERED: IV FLUIDS COMPLETED PRN (15:30)
[2018-02-09] MEDS: OXYCODONE/ACETAMINOPHEN 5-325 TAB PO PRN (19:40)
--- NOTE | 2018-02-09 19:40 | Surgery Progress Note ---
Surgery Progress Note Date of Service Feb 09, 2018. Subjective + feeling well F/U S/P lap appy. pt is doing fine, she tolerated clear diet, pt denies nausea, no vomiting, pt wants to go home [facility] of early childhood tomorrow Objective Vital Signs: Date Time Temp Pulse Resp B/P (MAP) Pulse Ox O2 Delivery O2 Flow Rate FiO2 02/09/18 16:00 Room Air 02/09/18 15:55 36.5 56 18 126/88 (101) 100 Room Air 02/09/18 14:00 56 18 106/68 (81) 97 02/09/18 13:30 36.8 65 18 108/72 (84) 100 Room Air 02/09/18 12:55 Room Air 02/09/18 12:55 36.5 65 18 107/75 (86) 100 Room Air 02/09/18 12:55 Room Air 02/09/18 12:45 36.7 62 15 114/85 100 Room Air 02/09/18 12:35 65 14 114/79 100 Room Air 02/09/18 12:25 62 15 104/72 100 Nasal Cannula 2 02/09/18 12:15 63 13 112/76 100 Oxymask 10 02/09/18 12:05 69 13 118/74 100 Oxymask 10 02/09/18 11:58 36.1 90 21 123/80 100 Oxymask 10 02/09/18 10:03 77 18 98 02/09/18 09:44 98 Room Air 02/09/18 09:07 62 18 120/70 98 Room Air 02/09/18 07:04 36.4 95 18 110/79 95 Room Air General Appearance: WD/WN, no apparent distress Head: normocephalic Neck: supple, no JVD Respiratory/Chest: chest non-tender, lungs clear Cardiovascular: regular rate, rhythm, no edema, no gallop, no JVD Abdomen: normal bowel sounds, soft (some incision pain, no diatended) Incision(s): clean, dry, intact Extremities: normal range of motion, non-tender, normal inspection Laboratory Results: Results Past 24 Hours Test 02/09/18 07:35 02/09/18 13:56 Range/Units White Blood Count 9.51 4.8-10.8 K/uL Red Blood Count 4.20 4.2-5.4 M/uL Hemoglobin 12.8 12.0-16.0 g/dL Hematocrit 37.8 37-47 % Mean Corpuscular Volume 90.0 80-100 fL Mean Corpuscular Hemoglobin 30.5 25-34 pg Mean Corpuscular Hemoglobin Concent 33.9 32-36 g/dl Platelet Count 339 130-400 K/uL Mean Platelet Volume 9.2 7.4-10.4 fL Neutrophils (%) (Auto) 74.5 % Lymphocytes (%) (Auto) 16.9 % Monocytes (%) (Auto) 6.8 % Eosinophils (%) (Auto) 1.4 % Basophils (%) (Auto) 0.3 % Neutrophils # (Auto) 7.08 1.4-6.5 K/uL Lymphocytes # (Auto) 1.61 1.2-3.4 K/uL Monocytes # (Auto) 0.65 0.11-0.59 K/uL Eosinophils # (Auto) 0.13 0-0.5 K/uL Basophils # (Auto) 0.03 0-0.2 K/uL RDW Standard Deviation 44.5 36.4-46.3 fL RDW Coefficient of Variation 13.5 11.5-14.5 % Immature Granulocyte % (Auto) 0.1 % Immature Granulocyte # (Auto) 0.01 0.00-0.02 K/uL Sodium Level 140 136-145 mmol/L Potassium Level 3.8 3.5-5.1 mmol/L Chloride Level 109 98-107 mmol/L Carbon Dioxide Level 24 21-32 mmol/L Anion Gap 7.0 3-11 mmol/L Blood Urea Nitrogen 6 7-18 mg/dl Creatinine 0.88 0.60-1.20 mg/dl Est Creatinine Clear Calc Drug Dose 89.9 ml/min Estimated GFR () 93.3 Estimated GFR (Non- 80.5 BUN/Creatinine Ratio 7.1 10-20 Random Glucose 88 70-99 mg/dl Calcium Level 8.3 8.5-10.1 mg/dl Total Bilirubin 0.4 0.2-1 mg/dl Direct Bilirubin < 0.1 0-0.2 mg/dl Aspartate Amino Transf (AST/SGOT) 11 15-37 U/L Alanine Aminotransferase (ALT/SGPT) 16 12-78 U/L Alkaline Phosphatase 66 45-117 U/L Total Protein 6.5 6.4-8.2 gm/dl Albumin 3.1 3.4-5.0 gm/dl Lipase 66 73-393 U/L Human Chorionic Gonadotropin, Qual NEG NEG Prothrombin Time 10.1 9.0-12.0 SECONDS Prothromb Time International Ratio 1.0 0.9-1.1 Assessment & Plan IMP: S/P lap appy, 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
--- NOTE | 2018-02-09 19:49 | Discharge Instructions ---
Discharge Instructions Date of Service Feb 09, 2018. Visit Reason for Visit: Acute Appendicitis Discharge Discharge Diagnosis / Problem: S/P appendectomy Discharge Goals Goal(s): Decrease discomfort, Improve function Activity Recommendations Activity Limitations: resume your previous activity Lifting Limitations: no more than 25 pounds Exercise/Sports Limitations: rest today May Resume Sexual Activity: after two weeks Shower/Bathe: may shower/bathe in 3 days Driving or Machine Use: resume 3 days after discharge Anesthesia . Post Anesthesia Instructions: If you have had General Anesthesia or IV Sedation: * Do not drive today. * Resume driving when surgeon permits. * Do not make important decisions or sign legal documents today. * Call surgeon for: 1. Temperature elevations greater than 101 degrees F. 2. Uncontrollable pain. 3. Excessive bleeding. 4. Persistent nausea and vomiting. 5. Medication intolerance (nausea, vomiting or rash). * For nausea and vomiting use only clear liquids such as: tea, soda, bouillon until nausea subsides, then gradually increase diet as tolerated. * If you have any concerns or questions, call your surgeon's office. If physician is unavailable and it is an emergency, call 911 or go to the nearest emergency room. . Instructions / Follow-Up Instructions / Follow-Up keep the dressing on for 4 days, she can take a shower on 02/13/2018, Follow up Leonides Mayes 1 week [phone] Diet Recommendations Recommended Home Diet: resume previous diet Procedures Procedures Performed: Laparoscopic Appendectomy Pending Studies Studies pending at discharge: no Medical Emergencies . Who to Call and When: Medical Emergencies: If at any time you feel your situation is an emergency, please call 911 immediately. . Non-Emergent Contact Non-Emergency issues call your: Primary Care Provider, Surgeon Call Non-Emergent contact if: you have a fever, temperature is above 100.5, your pain is not controlled, your pain is worsening, wound has increased drainage, wound has increased redness . . "Provider Documentation" section prepared by Panfilo Coyle. . [place] Drug Monitoring Program Search Results: no issues identified
[2018-02-09] MEDS ORDERED: CEFTRIAXONE SOD INJ 2 GM in DEXTROSE 5% ADD-VANTAGE 50ML 50 ML IV SCH (21:00)
[2018-02-10] MEDS: D5W AND 1/2NSS + 20MEQ KCL 1,000 ML IV SCH (02:13)
[2018-02-10 03:50] VITALS: BP 109/71; PULSE 90; TEMP 36.8; O2SAT 97
[2018-02-10] MEDS: OXYCODONE/ACETAMINOPHEN 5-325 TAB PO PRN (04:01)
[2018-02-10 05:07] LABS: BASO % 0.1 %; BASO ABS # 0.01 K/uL (0-0.2); EOS % 0.4 %; EOS ABS # 0.04 K/uL (0-0.5); HEMATOCRIT 34.6 % (37-47); IG# 0.01 K/uL (0.00-0.02); LYMPH % 24.3 %; LYMPH ABS # 2.29 K/uL (1.2-3.4); MEAN CELL VOLUME 90.3 fL (80-100); MEAN CORPUSCULAR HEMOGLOBIN 28.7 pg (25-34); MEAN CORPUSCULAR HGB CONC 31.8 g/dl (32-36); MEAN PLATELET VOLUME 9.2 fL (7.4-10.4); MONO ABS # 0.75 K/uL (0.11-0.59); NEUT % 67.1 %; NEUT ABS # 6.32 K/uL (1.4-6.5); PLATELET COUNT 303 K/uL (130-400); RED CELL DISTRIBUTION WIDTH CV 13.6 % (11.5-14.5); RED CELL DISTRIBUTION WIDTH SD 44.9 fL (36.4-46.3); WHITE BLOOD COUNT 9.42 K/uL (4.8-10.8)
[2018-02-10] MEDS ORDERED: CEFOXITIN SOD 2 GM VIAL IV ONE (06:00)
[2018-02-10 06:01] VITALS: BP 109/71; PULSE 90; TEMP 36.8; O2SAT 97
[2018-02-10] MEDS ORDERED: ENOXAPARIN 40 MG/0.4 ML SYR SQ SCH (09:00)
[2018-02-10] MEDS ORDERED: OXYC7.5T65 PO (11:38)
--- NOTE | 2018-02-10 13:58 | DISCHARGE SUMMARY ---
ADMITTING DIAGNOSIS: Acute appendicitis. DISCHARGE DIAGNOSIS: Same. OPERATION: Laparoscopic appendectomy. SURGEON: Dr. Panfilo Coyle. DETAILS OF DISCHARGE SUMMARY: This is a 42-year-old female who presented to the ED with right lower quadrant pain. The patient had a CT scan that confirmed diagnosis of acute appendicitis. We took the patient to the OR. We did a laparoscopic appendectomy yesterday on 02/09/2018 and the patient tolerated the procedure well. After the procedure, the patient transferred to recovery room in stable condition and later on transferred to the surgical floor. The patient doing fine. She tolerated clear diet and walking in the hallway. PHYSICAL EXAMINATION: VITAL SIGNS: Temperature is 36.8, heart rate 90, respiratory rate 16, blood pressure is 109/71, O2 saturation 97% on room air. GENERAL: The patient is alert, awake, oriented x3. HEENT: Within normal limitation. NEUROLOGIC: Intact. NECK: No JVD. CHEST: Bilateral lung sounds clear. HEART: Normal S1, S2. No murmur. ABDOMEN: Soft. No tenderness, only incision pain. Good control of incision pain. Not distended. Bowel sounds positive. EXTREMITIES: No edema. PLAN: The patient wanted to go home today. Gave the patient postop care instruction, the patient understands. I will follow up the patient in 1 week.
== END 2018-02-10 06:26 | disposition home or self-care (01) ==
LOC: C.EDB 07:02 → ENRESERV 09:34 → C.MSW 11:56
PROVIDERS: ADMIT Surgery; ATTEND Surgery
DX: K35.80 Unspecified acute appendicitis (principal); Z90.89 Acquired absence of other organs; Z87.891 Personal history of nicotine dependence; Z88.2 Allergy status to sulfonamides; Z91.013 Allergy to seafood; F90.9 Attention-deficit hyperactivity disorder, unspecified type; Z79.899 Other long term (current) drug therapy